=== PATIENT | female | born 1950 | race Caucasian/White ===

== ENCOUNTER 2019-04-21 10:12 | Emergency (ER) | payer OTHER, MEDICARE, SELFPAY ==
[2019-04-21 10:15] VITALS: BP 182/88; PULSE 70; RESP 18; TEMP 36.7; O2SAT 96; BMI 32.9
--- NOTE | 2019-04-21 10:23 | DI.RAD.S_ITS ---
PROCEDURE: XR CHEST 2V INDICATIONS: SOB TECHNIQUE: 2 views of the chest were acquired. COMPARISON: [facility], , XR CHEST 1 VIEW, 03/17/2019, 15:31. FINDINGS: Surgical changes and devices: Left chest wall dual-lead AICD appears stable in position. Lungs and pleura: The visualized lungs are clear. No pleural effusions or pneumothorax. Mediastinum: Mediastinal contours are normal. Heart size is normal. Bones and chest wall: No suspicious bony abnormalities. Soft tissues appear unremarkable. IMPRESSION: 1. No acute cardiopulmonary disease. Dictated by: Geovanni Calixto M.D. on 04/21/2019 at 9:53 Approved by: Geovanni Calixto M.D. on 04/21/2019 at 9:54
--- NOTE | 2019-04-21 10:23 | ED_ITS ---
HPI - Arrhythmia/Palpitations General Chief Complaint: Arrhythmia/Palpitations Stated Complaint: Possible anxiety/history heart issues/pacemaker Time Seen by Provider: 04/21/19 10:14 Source: patient and family Mode of arrival: Ambulatory Limitations: no limitations History of Present Illness HPI narrative: 68F non smoker with history of tachyarrhythmias with a pacemaker / AICD presents with a chief complaint of episodes of palpitations, shortness of breath and dizziness this morning in the absence of chest pain. She has no ongoing symptoms. She denies any nausea, vomiting or diarrhea. She denies any pain. She states she is absolutely certain her defibrillator did not go off. She denies any change in her medications or diet. She denies any recent long- distance travel and is otherwise well and free of complaint. She states she does tend to get rather anxious and feels very worked up every time she feels palpitations given her extensive history. Related Data Home Medications Medication Instructions Recorded Confirmed albuterol sulfate [Ventolin HFA] 2 puff INHALATION Q4H PRN #0 11/28/16 04/21/19 aspirin #0 11/28/16 cholecalciferol (vitamin D3) #0 11/28/16 [Vitamin D3] fluticasone propionate [Flovent #0 11/28/16 Diskus] lovastatin #0 11/28/16 multivitamin [Multiple Vitamins] #0 11/28/16 oxycodone #0 11/28/16 Allergies Allergy/AdvReac Type Severity Reaction Status Date / Time codeine [CODEINE] Allergy Mild RASH Unverified 11/08/17 12:43 Review of Systems Constitutional Constitutional: Denies chills, Denies fatigue, Denies fever(s), Denies frequent falls, Denies lethargy and Denies weakness Eyes Eyes: Denies change in vision, Denies eye discharge, Denies irritation and Denies loss of vision ENT Ears, Nose, Mouth, and Throat: Denies change in voice, Denies dizziness, Denies neck pain, Denies sore throat and Denies throat swelling Cardiovascular Cardiovascular: Denies chest pain, Denies irregular heart rhythm, Denies lightheadedness, Reports palpitations, Denies dyspnea, Denies dyspnea on exertion and Denies orthopnea Respiratory Respiratory: Denies cough, Denies dyspnea, Denies dyspnea on exertion and Denies wheezing Gastrointestinal Gastrointestinal: Denies abdominal pain, Denies change in bowel habits, Denies diarrhea, Denies nausea and Denies vomiting Genitourinary Genitourinary: Denies hematuria, Denies flank pain, Denies urinary incontinence and Denies urinary urgency Musculoskeletal Musculoskeletal: Denies back pain, Denies muscle weakness, Denies neck pain, Denies numbness and Denies tingling Integumentary/Breasts Skin/Breast: Denies pruritus, Denies erythema, Denies rash and Denies wounds Neurologic Neurologic: Denies behavioral changes, Denies confusion, Denies dizziness, Denies frequent falls, Denies loss of vision, Denies numbness, Denies tingling and Denies weakness Psychiatric Psychiatric: Denies anxiety, Denies behavioral changes, Denies confusion, Denies depression, Denies homicidal ideation and Denies suicidal ideation Endocrine Endocrine: Denies fatigue, Denies flushing and Reports palpitations Hematologic/Lymphatic Hematologic/Lymphatic: Denies easy bruising Allergic/Immunologic Allergic/Immunologic: Denies urticaria, Denies throat swelling and Denies wheezing Exam Narrative Exam Narrative: GENERAL: [68] year old patient appears stated age. Well- nourished, well-developed patient, in mild distress. HEAD: Atraumatic. Normocephalic. EYES: Pupils equal round and reactive. Extraocular motions intact. No scleral icterus. No injection or drainage. ENT: Moist mucous membranes Nose without bleeding, purulent drainage. Throat without erythema, tonsillar hypertrophy or exudate. Airway patent. NECK: Trachea midline. Non tender CARDIOVASCULAR: Regular rate and rhythm without murmurs, gallops, or rubs. RESPIRATORY: Clear to auscultation. Breath sounds equal bilaterally. No wheezes, rales, or rhonchi. GASTROINTESTINAL: Abdomen soft, non-tender, nondistended. EXTREMITIES: No edema or joint tenderness. BACK: Nontender without deformity or crepitance. No flank tenderness. NEURO: AOx3. SKIN: No rash or erythema of visible areas Initial Vital Signs Initial Vital Signs: Vital Signs Temperature 98.0 F 04/21/19 10:15 Pulse Rate 70 04/21/19 10:15 Respiratory Rate 18 04/21/19 10:15 Blood Pressure 182/88 H 04/21/19 10:15 Pulse Oximetry 96 04/21/19 10:15 Course Course Course Narrative: AICD is interrogated and no events occurred this morning. Her she requires 19 beats at a rate of 139 or higher for to register. We did have a lengthy discussion regarding her very reassuring exam and labs. It is certainly possible that this is all anxiety or more likely she had a brief run of tachycardia that was not sufficient to register on her AICD. She has an appointment with her principal biostatistician on Monday. She has been given return precautions and has had all of her questions answered to her apparent satisfaction Orders Ordered: ED Orders 04/21/19 10:23 XR chest 2V Stat 04/21/19 10:31 Complete Blood Count AUTO DIFF Stat Comprehensive Metabolic Panel Stat Magnesium Stat Troponin & CK Cardiac Panel Stat Vital Signs Vital signs: Vital Signs - 8 hr 04/21/19 12:34 04/21/19 13:47 04/21/19 13:54 Pulse Rate 70 70 70 Respiratory Rate 14 Blood Pressure 168/71 H Blood Pressure [Right Arm] 141/70 H 168/81 H Pulse Oximetry 100 100 100 MDM - Arrhythmia/Palpitations Lab Data Result diagrams: 04/21/19 10:31 04/21/19 10:31 Labs: Lab Results 04/21/19 04/21/19 04/21/19 Range/Units 10:31 10:31 10:31 WBC 4.9 (4.5-11.0) X10^3/uL RBC 4.33 (4.0-5.2) X10^6/uL Hgb 12.9 (12.0-16.0) g/dL Hct 37.7 (36-46) % MCV 87.3 (80-100) fL MCH 29.8 (26-34) PG MCHC 34.1 (30-36) % RDW 14.4 (11.6-14.8) % Plt Count 241 (150-400) X10^3/uL Neut % (Auto) 65.8 (50-75) % Lymph % (Auto) 23.2 L (25-40) % Rogers % (Auto) 7.1 (3-14) % Eos % (Auto) 3.1 (2-4) % Baso % (Auto) 0.8 (0-2) % Neut # (Auto) 3300 (6572-0062) /uL Lymph # (Auto) 1100 (3678-8417) /uL Rogers # (Auto) 300 (0-900) /uL Eos # (Auto) 200 (0-450) /uL Baso # (Auto) 0 (0-100) /uL Sodium 142 (137-145) mmol/L Potassium 4.3 (3.4-5.1) mmol/L Chloride 105 (98-107) mmol/L Carbon Dioxide 29 (22-32) mmol/L BUN 20 H (7-17) mg/dL Creatinine 0.70 (0.52-1.04) mg/dL Estimated GFR > 60.0 (>60) mL/min BUN/Creatinine Ratio 28.6 H (6-22) Glucose 101 (80-110) mg/dL Calcium 8.9 (8.4-10.2) mg/dL Magnesium 2.2 (1.6-2.3) mg/dL Total Bilirubin 0.5 (0.2-1.3) mg/dL AST 32 (14-36) IU/L ALT 26 (9-52) IU/L Alkaline Phosphatase 115 (38-126) U/L Total Creatine Kinase 55 (30-135) U/L CK-MB (CK-2) TNP CK-MB (CK-2) Rel Index TNP Troponin I < 0.012 (0.01-0.034) ng/mL Total Protein 7.1 (6.3-8.2) g/dL Albumin 4.3 (3.5-5.0) g/dL Globulin 2.8 (1.7-4.1) g/dL Albumin/Globulin Ratio 1.5 (1.0-2.8) Discharge Plan Departure Patient Disposition: Home Clinical Impression: Palpitations Discharge Date/Time: 04/21/19 13:56 Instructions: Arrhythmias Activity Restrictions/Additional Instructions: *You have been diagnosed with [episodes of dizziness and palpitations, resolved. Your AICD has been interrogated and no events happened today, your blood work is very reassuring] *What to do: *Take medications as directed *Follow up with your principal biostatistician on Monday as planned *Return to ER if you should have any new, worsening or concerning symptoms Prescriptions: No Action albuterol sulfate [Ventolin HFA] 90 MCG/PUFF HFA aerosol inhaler 2 puff inhalation Q4H PRN (Reason: SOB) Qty: 0 RF: 0 multivitamin [Multiple Vitamins] 1 EACH tablet Qty: 0 RF: 0 aspirin 81 MG tablet,chewable Qty: 0 RF: 0 lovastatin 20 MG tablet Qty: 0 RF: 0 fluticasone propionate [Flovent Diskus] 250 MCG blister with device Qty: 0 RF: 0 cholecalciferol (vitamin D3) [Vitamin D3] 400 UNIT capsule Qty: 0 RF: 0 oxycodone 5 MG tablet Qty: 0 RF: 0 Referrals: Lucy Valadez MD [Primary Care Provider] -
[2019-04-21 10:45] LABS: Add Manual Diff / Slide Review NO; Basophils Absolute Auto 0 /uL (0-100); Basophils Percent Auto 0.8 % (0-2); Eosinophils Absolute Auto 200 /uL (0-450); Eosinophils Percent Auto 3.1 % (2-4); Hematocrit 37.7 % (36-46); Hemoglobin 12.9 g/dL (12.0-16.0); Lymphocytes Absolute Auto 1100 /uL (1100-4500); Lymphocytes Percent Auto 23.2 % (25-40); Mean Corpuscular HGB Conc 34.1 % (30-36); Mean Corpuscular Hemoglobin 29.8 PG (26-34); Mean Corpuscular Volume 87.3 fL (80-100); Monocytes Absolute Auto 300 /uL (0-900); Monocytes Percent Auto 7.1 % (3-14); Neutrophils Absolute Auto 3300 /uL (1500-7000); Neutrophils Percent Auto 65.8 % (50-75); Platelet Count 241 X10^3/uL (150-400); Red Blood Cell Count 4.33 X10^6/uL (4.0-5.2); Red Cell Distribution Width 14.4 % (11.6-14.8); White Blood Cell Count 4.9 X10^3/uL (4.5-11.0)
[2019-04-21 10:58] LABS: Creatine Kinase 55 U/L (30-135)
[2019-04-21 10:59] LABS: Alanine Aminotransferase 26 IU/L (9-52); Albumin 4.3 g/dL (3.5-5.0); Albumin Globulin Ratio 1.5 (1.0-2.8); Alkaline Phosphatase 115 U/L (38-126); Aspartate Aminotransferase 32 IU/L (14-36); BUN Creatinine Ratio 28.6 (6-22); Bilirubin Total 0.5 mg/dL (0.2-1.3); Blood Urea Nitrogen 20 mg/dL (7-17); Calcium 8.9 mg/dL (8.4-10.2); Carbon Dioxide 29 mmol/L (22-32); Chloride 105 mmol/L (98-107); Estimated Glomerular Filt Rate > 60.0 mL/min (>60); Globulin 2.8 g/dL (1.7-4.1); Glucose 101 mg/dL (80-110); HEMOLYSIS < 15 (0-50); Magnesium 2.2 mg/dL (1.6-2.3); Potassium 4.3 mmol/L (3.4-5.1); Sodium 142 mmol/L (137-145); Total Protein 7.1 g/dL (6.3-8.2)
[2019-04-21 11:11] LABS: Troponin I < 0.012 ng/mL (0.01-0.034)
[2019-04-21 12:34] VITALS: BP 141/70; PULSE 70; RESP 14; O2SAT 100
[2019-04-21 13:47] VITALS: BP 168/81; PULSE 70; RESP 22; O2SAT 100
[2019-04-21 13:54] VITALS: BP 168/71; PULSE 70; RESP 19; O2SAT 100
== END 2019-04-21 13:56 | disposition home or self-care (01) ==
PROVIDERS: Emergency Provider Emergency Medicine; Family Provider Internal Medicine Cardiovascular Disease; PCP Family Medicine
DX: R00.2 Palpitations (principal)
CPT/HCPCS: 36591; 71046; 80053; 82550; 83735; 84484; 85025; 93005; 93010; 93041; 99283; 99285